=== PATIENT | male | born 1970 | race Caucasian/White ===

== ENCOUNTER 2017-01-25 04:20 | Observation (INO) ==
--- NOTE | 2017-01-25 02:53 | Internal Med History&Physical ---
Date of Encounter: 01/25/17 Time of Encounter: 02:00 Assessment and Plan (1) Hyperglycemia Current visit: Yes Status: Acute - New onset of hyperglycemia with blood glucose at 416 and anion gap of 18 in [facility] - Questionable DKA vs. HHS. - Will repeat chemistry and check venous blood gas pH, serum osmolality, UA, anti-LELE, anti-islet cell and Hgb A1C for further evaluation. - Latest glucose around 200. Will switch from IV insulin to SQ insulin (10 units of insulin Levemir and low-correction sliding scale.) - Closely monitor. - informatics educator consulted for possible new onset of diabetes. (2) History of cholecystectomy Current visit: Yes Status: Acute - Per patient, recent cholecystectomy on 12/14/16 for gallbladder dysfunction. (3) DVT prophylaxis Current visit: Yes Status: Acute - SQ heparin. Internal Medicine - H&P: HPI Chief complaint: Hyperglycemia Admitted From: Emergency Dept Plans for Post Hospital Care: Home History of present illness: Mr. Benson is a 46 year old male without significant PMH but cholecystectomy on for gallbladder dysfunction. Patient presented to [facility] after being found to have blood glucose around 500 at an employee health fair. Patient reports having polydipsia, polyuria, blurry vision and weight loss of 13 lbs since the surgery. Patient denies nausea, vomiting, diarrhea, abdominal pain, chest pain, shortness of breath, fever, chills. Patient denies being diagnosed with diabetes but does have family history (father has diabetes). Patient is full code. In [facility], patient received 1L of NS and was started on insulin drip before transferring here. Past Med Surg Social Fam HX - Past Medical History Medical history: no medical history Psychiatric history: no psych history - Past Surgical History Surgical History: cholecystectomy - Social History Smoking Status: Never smoker Smokeless Tobacco Status: No Alcohol use: none Drug use: none - Family History Father Hx Family Endocrine Disorder: Yes (DM) Internal Medicine - H&P: Meds No Known Home Drugs 01/24/17 [History] Allergies No Known Allergies Allergy (Verified 01/24/17 21:34) All Systems PM: A 10-system review of systems was performed and is negative for pertinent findings except as documented above in the HPI. - Constitutional Constitutional: weight loss, no anorexia, no chills, no fever(s) - EENT Eyes: blurry vision Ears: no decreased hearing Nose, mouth and throat: no dysphagia, no odynophagia - Cardiovascular Cardiovascular ROS IM: no chest pain, no edema, no syncope - Respiratory Respiratory: no cough, no dyspnea, no hemoptysis - Gastrointestinal Gastrointestinal: no abdominal pain, no diarrhea, no hematochezia, no melena, no nausea, no vomiting - Genitourinary Genitourinary ROS male: no difficulty urinating, no dysuria, no hematuria - Musculoskeletal Musculoskeletal ROS IM: no arthralgias, no myalgias - Integumentary Integumentary IM: no pruritus, no rash - Neurological Neurological ROS: no focal weakness, no numbness, no tingling - Hematologic/Lymphatic Hematologic/Lymphatic: no easy bleeding, no easy bruising - Constitutional Vitals: Temp Pulse Resp BP Pulse Ox 98.8 F 85 18 147/88 96 01/25/17 01:49 01/25/17 01:52 01/25/17 01:52 01/25/17 01:52 01/25/17 01:52 General appearance: Present: cooperative, A&O X 3, no acute distress, answers questions appropriately - Head Head exam: Present: atraumatic, normocephalic - Eye Eye exam: Present: EOMI, PERRL, conjuntiva pink, sclera anicteric - Neck Neck exam general surgery: Present: supple, trachea midline. Absent: lymphadenopathy - Respiratory Respiratory exam: Present: CTAB. Absent: accessory muscle use, rales, rhonchi, wheezes - Cardiovascular Cardiovascular exam: Present: RRR, +S1, +S2. Absent: diastolic murmur, gallop, rubs, systolic murmur - GI/Abdominal GI/Abdominal exam: Present: normal bowel sounds, soft, no peritoneal signs. Absent: distended, tenderness - Extremities Exam Extremities exam: Present: warm, radial pulses palpable and symetrical. Absent : calf tenderness, cyanotic, pedal edema - Neurological Exam Neurological exam: Present: CN II-XII intact, oriented X3, no focal deficits. Absent: pronater drift, facial droop, speech deficit - Skin Skin exam: Present: dry, intact, warm
[2017-01-25 03:36] LABS: Bilirubin,Urine Negative (Negative); Blood,Urine Negative (Negative); Clarity,Urine Clear (Clear); Color,Urine Yellow (Yellow); Glucose,Urine (UA) >=1000 mg/dL (Normal); Ketones,Urine >=160 mg/dL (Negative); Leukocyte Esterase,Urine Negative (Negative); Nitrite,Urine Negative (Negative); PH,Urine 5.5 pH Units (5.0-8.0); Protein,Urine Negative (Neg-Trace); Specific Gravity,Urine > 1.030 (1.010-1.025); Urobilinogen,Urine Normal (Normal)
[2017-01-25] MEDS: Insulin LISPRO 300 UNITS/3 ML VIAL SQ SCH ×9 (03:39→22:07)
[2017-01-25] MEDS: Insulin DETEMIR 100 UNIT/ML X5UNITS SQ SCH ×2 (03:40→22:09)
[2017-01-25 03:43] LABS: Beta-Hydroxybutyric Acid > 2.00 mmol/L (0.02-0.27)
[2017-01-25 03:49] LABS: BUN/Creatinine Ratio 18 (6-26); Blood Urea Nitrogen 18 mg/dL (8-26); Calcium 8.8 mg/dL (8.6-10.8); Carbon Dioxide 20 mEq/L (19-29); Chloride 105 mEq/L (98-109); Glucose 185 mg/dL (70-99); Osmolality,Calculated 291 (280-300); Sodium 137 mEq/L (136-145); eGFR For African Americans > 60 (> 60); eGFR For Non-African Americans > 60 (> 60)
[2017-01-25 03:51] LABS: Potassium 3.3 mEq/L (3.5-4.5)
--- NOTE | 2017-01-25 03:52 | Event Note ---
Date of Encounter: 01/25/17 Time of Encounter: 03:50 Patient seen and examined. New onset Hyperglycemic hyperosmolar state. Hydrate. Switch to Long acting and premeal insulin since he can tolerate diet, sugar < 250 and no acidosis. Check A1C. No infectious etiology. Recent cholecystectomy in 12/14/2016.
[2017-01-25 03:57] LABS: VBG HCO3 23.2 mEq/L (21-27); VBG PH 7.34 pH Units (7.32-7.42)
[2017-01-25 04:03] LABS: Estimated Average Glucose > 355 mg/dl; Hemoglobin A1C >= 14.1 %
[~2017-01-25 04:20] MED LIST: *HR* Dextrose 50 % in Water (Syg) 50 ML SYRINGE IVP PRN; 0.9 % Sodium Chloride 1,000 ML IVC ONE; 0.9 % Sodium Chloride w KCl 20 MEQ/1,000 ML MLS IVC SCH; D5% in 0.45% NACL 1,000 ML IVC PRN; D5% in 0.45% NACL w KCl 20 MEQ/1,000 ML MLS IVC PRN; D5% in Water 1,000 ML IVC PRN; Dextrose Gel 15 GM PO PRN; Insulin Human Regular 100 UNIT in 0.9 % Sodium Chloride 100 ML IVC SCH; Insulin LISPRO 300 UNITS/3 ML VIAL SQ PRN
[2017-01-25] MEDS: 0.9 % Sodium Chloride 1,000 ML IVC SCH ×2 (05:11→11:50)
[2017-01-25] MEDS: *HR* Heparin 5,000 UNIT/ML VIAL SQ SCH ×3 (05:14→22:06)
[2017-01-25 10:33] LABS: BUN/Creatinine Ratio 15 (6-26); Blood Urea Nitrogen 15 mg/dL (8-26); Calcium 8.4 mg/dL (8.6-10.8); Carbon Dioxide 21 mEq/L (19-29); Chloride 107 mEq/L (98-109); Glucose 291 mg/dL (70-99); Osmolality,Calculated 296 (280-300); Potassium 3.5 mEq/L (3.5-4.5); Sodium 137 mEq/L (136-145); eGFR For African Americans > 60 (> 60); eGFR For Non-African Americans > 60 (> 60)
--- NOTE | 2017-01-25 11:03 | Internal Med Progress Note ---
<YurySusannah daniels - Last Filed: 01/25/17 11:01> Date of Encounter: 01/25/17 Time of Encounter: 11:01 - Assessment and plan (1) Hyperglycemia Current Visit: Yes Status: Acute Assessment and plan: Newly diagnosed DM. Patient states his father had Type 2 DM Patient's is very anxious regarding his new diagnosis and what type of DM he may have. Likely secondary to type 2DM/HHNS based on VBG and BMP. Plan: consult to nutrition SQ and HS insulin with low dose sliding scale will continue to monitor blood glucose. anti LELE, islet cell antibody level pending (2) History of cholecystectomy Current Visit: Yes Status: Acute Assessment and plan: recent cholecystectomy on 12/14/16 likely a contributory stressor for hospitalization secondary to hyperglycemia. (3) DVT prophylaxis Current Visit: Yes Status: Acute Assessment and plan: Heparin SQ - Subjective Interval history: 46 year old male evaluated at bedside. HE was admitted overnight for newly diagnosed diabetes. he denies nausea, vomiting, diarrhea, fever, chills, chest pain, and shortness of breath. he denies any current complaints. - Constitutional Vitals: Temp Pulse Resp BP Pulse Ox 98.4 F 74 16 133/78 95 01/25/17 07:16 01/25/17 07:16 01/25/17 07:16 01/25/17 07:16 01/25/17 07:16 General appearance: Present: cooperative, A&O X 3, no acute distress, answers questions appropriately - Head Head exam: Present: atraumatic, normocephalic - Neck Neck exam general surgery: Present: supple, trachea midline - Respiratory Respiratory exam: Present: CTAB - Cardiovascular Cardiovascular exam: Present: RRR, +S1, +S2 - GI/Abdominal GI/Abdominal exam: Present: normal bowel sounds, soft. Absent: distended, tenderness - Extremities Exam Extremities exam: Absent: cyanotic, pedal edema - Neurological Exam Neurological exam: Present: alert, oriented X3, no focal deficits - Psychiatric Psychiatric exam: Present: normal affect, normal mood - Skin Skin exam: Present: intact Internal Medicine: Result - Labs CBC & Chem 7: 01/25/17 09:38 Labs: BMP 01/25/17 01/25/17 03:22 09:38 Sodium 137 D 137 Potassium 3.3 L 3.5 Chloride 105 107 Carbon Dioxide 20 21 BUN 18 15 Creatinine 1.02 0.99 Glucose 185 H 291 H Calcium 8.8 8.4 L Urine 01/25/17 Range/Units 03:20 Urine Color Yellow (Yellow) Urine Clarity Clear (Clear) Urine pH 5.5 (5.0-8.0) pH Units Ur Specific [address] > 1.030 H (1.010-1.025) Urine Protein Negative (Neg-Trace) mg/dL Urine Glucose (UA) >=1000 H (Normal) mg/dL Consult Discharge Plan - Plan Referrals: Irene New CNP [Primary Care Provider] - Prescriptions: Glucagon, Human Recombinant [Glucagen] 1 mg IM ONCE PRN #1 vial PRN Reason: Hypoglycemia Insulin DETEMIR [Levemir Flextouch] 10 unit SQ HS #1 insuln.pen Insulin LISPRO [Humalog Kwikpen] 4 unit SQ TIDAC #1 insuln.pen <Jose Velasco - Last Filed: 01/25/17 18:26> Date of Encounter: 01/25/17 - Assessment and plan (1) 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 (2) Ketoacidosis Current Visit: Yes Status: Resolved - Constitutional Vitals: Temp Pulse Resp BP Pulse Ox 98.1 F 95 14 127/82 96 01/25/17 14:42 01/25/17 14:42 01/25/17 14:42 01/25/17 14:42 01/25/17 14:42 Internal Medicine: Result - Labs CBC & Chem 7: 01/25/17 09:38 Labs: BMP 01/25/17 01/25/17 03:22 09:38 Sodium 137 D 137 Potassium 3.3 L 3.5 Chloride 105 107 Carbon Dioxide 20 21 BUN 18 15 Creatinine 1.02 0.99 Glucose 185 H 291 H Calcium 8.8 8.4 L Urine 01/25/17 Range/Units 03:20 Urine Color Yellow (Yellow) Urine Clarity Clear (Clear) Urine pH 5.5 (5.0-8.0) pH Units Ur Specific [address] > 1.030 H (1.010-1.025) Urine Protein Negative (Neg-Trace) mg/dL Urine Glucose (UA) >=1000 H (Normal) mg/dL - Attending Attestation I examined this patient and my medical decision-making was reviewed with the Resident Physician on 01/25/17. I agree with the documented findings, disposition and treatment plan as described except to the extent set forth below. Mr. Benson is currently in observation for new onset diabetes which is presumptive ATIF. He is currently high risk due to fluctuating blood sugars and need for medication adjustments. Mr Benson is quite distressed about new diagnosis. He is frightened of potential problems and medical complications. I spoke to him and his for greater than 20 minutes about diabetes and plan. He denies pain. No fever or chills. No GI issues. Exam Alert. Comfortable Heart reg No wheeze Abd soft No edema I/P 1. New onset diabetes - most likely ATIF. Continue insulin and education. Anticipate d/c tomorrow if BS somewhat stable. Antibodies ordered and pending. Further diagnoses and plan as above.
--- NOTE | 2017-01-25 14:47 | Discharge Summary ---
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), managed as type 1 Priority: Primary Status: Suspected (2) Ketoacidosis Priority: Secondary Status: Resolved (3) History of cholecystectomy Priority: Secondary Status: Resolved (4) Obesity (BMI 30.0-34.9) Priority: Secondary Status: Chronic - Discharge Medications Prescriptions: Glucagon, Human Recombinant [Glucagen] 1 mg IM ONCE PRN #1 vial PRN Reason: Hypoglycemia Insulin DETEMIR [Levemir Flextouch] 10 unit SQ HS #1 insuln.pen Insulin LISPRO [Humalog Kwikpen] 4 unit SQ TIDAC #1 insuln.pen Home Medications: No Known Home Drugs 01/24/17 [History] Glucagon, Human Recombinant [Glucagen] 1 mg IM ONCE PRN #1 vial 01/25/17 [Rx] Insulin DETEMIR [Levemir Flextouch] 10 unit SQ HS #1 insuln.pen 01/25/17 [Rx] Insulin LISPRO [Humalog Kwikpen] 4 unit SQ TIDAC #1 insuln.pen 01/25/17 [Rx] Insulin LISPRO [HumaLOG] 0 units SQ HS vial 01/26/17 [Rx] Insulin LISPRO [HumaLOG] 0 units SQ TIDAC vial 01/26/17 [Rx] Insulin LISPRO [HumaLOG] 4 units SQ TIDWM vial 01/26/17 [Rx] Allergies/Adverse Reactions: Allergies No Known Allergies Allergy (Verified 01/24/17 21:34) Date of admission: 01/25/17 05:30 Primary care physician: Irene New CNP Consults: 01/25/17 03:09 Consult to Drug Safety Coordinator [CONS] Routine Comment: Reason for Consult: New onset DM. 01/25/17 11:08 Consult to Nutrition [CONS] Routine Comment: Consulting Provider: NUTRITION Reason for Dietary Consult: Other Other:: newly diagnosed diabetes: diet education Discharging clinician: Jose Velasco Anticipated date of discharge: 01/26/17 - Patient Status Disposition: Home, Self-Care Condition: Good Functional capacity at discharge: independent ambulation Overall status at discharge: patient is progressing back to baseline - Discharge Instructions Follow Up With: Irene New CNP [Primary Care Provider] - (Please calll saturday for a follow up appointment) Additional Instructions: Follow up with PCP (resident clinic) in 1 week. Referral for rubber production machine operator given Call vacuum forming machine operator here [phone] to speak with me (Dr. Jose Velasco) if needed before appointment. Referral for outpatient music educator. - Diet and Activity Activity: increase activity as tolerated Diet: diabetic diet Hospital course: Mr. Benson is a 46 year old male with no prior medical history presented to ED feeling weak and ill. He had cholecystectomy in late November and continued to feel ill. In ED he was found to be profoundly hyperglycemic and acidotic. He was subsequently transferred for admission. Mr Benson was admitted to [facility]. He was started on aggressive fluids and insulin. HgbA1C was greater than 14. He had improvement in his sugars to range of 200 to 250 with Levimir and humalog. Clinically he was feeling much better as well. He was seen by endocrinology teacher for education and was educated by myself on diabetes and treatment. On 01/26 he was feeling well. He was afebrile with stable vitals and ready for discharge home. He will follow up with PCP and endocrinology. Antibodies for ATIF are still pending at this time. - Time Spent with Patient Total time spent providing and/or coordinating discharge services: 70min - Constitutional Vitals: Temp Pulse Resp BP Pulse Ox 97.7 F 69 14 128/81 95 01/25/17 11:15 01/25/17 11:15 01/25/17 11:15 01/25/17 11:15 01/25/17 11:15 General appearance: Present: cooperative, A&O X 3, pleasant, answers questions appropriately - Head Head exam: Present: normocephalic - Eye Eye exam: Present: conjuntiva pink Pupils: Present: PERRL - ENT ENT exam: Present: mucous membranes moist - Respiratory Respiratory exam: Present: CTAB. Absent: rhonchi, wheezes - Cardiovascular Cardiovascular exam: Present: RRR. Absent: tachycardia - GI/Abdominal GI/Abdominal exam: Present: soft. Absent: tenderness - Extremities Exam Extremities exam: Present: warm. Absent: tenderness - Neurological Exam Neurological exam: Present: alert, oriented X3, no focal deficits - Psychiatric Psychiatric exam: Present: normal affect, normal mood - Skin Skin exam: Present: warm. Absent: rash
[2017-01-25 23:52] LABS: Creatinine,Urine 52 mg/dL; Microalbum/Creatinine Ratio,Ur 10 (0-30); Microalbumin,Urine < 5 mg/L
[2017-01-26] MEDS: *HR* Heparin 5,000 UNIT/ML VIAL SQ SCH (05:25)
[2017-01-26] MEDS: Insulin LISPRO 300 UNITS/3 ML VIAL SQ SCH ×4 (08:59→12:37)
[2017-01-26 11:07] VITALS: BP 121/75
[2017-01-28 08:20] LABS: Islet Cell Antibody, IgG <1:4 (<1:4)
== END 2017-01-26 13:43 | disposition home or self-care (01) ==
LOC: 2ANU → ICNU → 2ANU 04:20 → SUATTDRO 05:30
PROVIDERS: ADMIT Hospitalist; ATTEND Internal Medicine